=== PATIENT | female | born 1970 | race Caucasian/White ===

== ENCOUNTER → 2021-05-14 00:49 | Outpatient (CLI) | payer OTHER, BC, SELFPAY ==
[2021-05-15 16:57] LABS: SARS-CoV-2 RNA PCR Negative
== END ==
PROVIDERS: PCP Internal Medicine; Visit Provider Internal Medicine Gastroenterology
DX: Z01.812 Encounter for preprocedural laboratory examination (principal); Z20.822 Contact with and (suspected) exposure to COVID-19
CPT/HCPCS: C9803; U0003; U0005

== ENCOUNTER 2021-05-17 01:04 | Day surgery (SDC) | payer OTHER, BC, SELFPAY ==
[2021-05-10 11:57] VITALS: BMI 24.1
[2021-05-17 08:05] VITALS: BP 105/70; PULSE 86; RESP 16; TEMP 36.2; O2SAT 98; BMI 24.5
[2021-05-17] MEDS: LACTATED RINGERS 1,000 ML 150 ML IV CONT (08:08)
--- NOTE | 2021-05-17 08:08 | P.PNAN_ITS ---
Anes - Initial Pre Proc Eval Procedure: Operation Date: 05/17/21 08:30 Proposed Procedures p Esophagogastroduodenoscopy - Tim Ramsay MD Date/Time: 05/17/21 08:08 Surgeon: Tim Ramsay MD Pre Op Diagnosis: esophageal stricture Patient Data Age: 50 Gender: F Height: 1.73 m Weight: 73.3 kg Last Vital Signs Temp 97.2 F L 05/17/21 08:05 Pulse 86 05/17/21 08:05 Resp 16 05/17/21 08:05 BP 105/70 05/17/21 08:05 Pulse Ox 98 05/17/21 08:05 Allergies Allergy/AdvReac Type Severity Reaction Status Date / Time No Known Allergies Allergy Verified 05/17/21 08:04 Home Medications Medication Instructions Recorded Confirmed Type omeprazole 20 mg PO DAILY 05/17/21 05/17/21 History Patient hx anesthesia problems: none Family hx anesthesia problems: none [facility] Past Medical History Medical History (Updated 05/17/21 @ 08:04 by Darvin Hess MD) GERD (gastroesophageal reflux disease) Social History Social History Years smoked: 15 Smoking status: Current some day smoker Tobacco type: cigarettes Alcohol intake: current Substance use: never Substance use type: does not use Living arrangements: with family Spiritual care concerns: No Anes - Eval Final PreProcedure Day of Procedure 05/17/21 08:08 Patient weight: normal Heart: regular rate and rhythm Lungs: clear to auscultation Airway: Mallampati scale class II Neurological: alert and oriented Last oral intake: >/= 8 hours ASA classification: II Emergent: no Anesthetic plan: proceed Anesthesia type and monitoring: general GIVS and standard monitoring Informed Consent: The patient's anesthetic plan and its attendant risks and benefits were discussed with the patient/family/POA. Questions were solicited and answers provided to the satisfaction of the patient/family/POA.
--- NOTE | 2021-05-17 08:18 | PM.HPGS ---
History of Present Illness History of Present Illness Consent: Risks, benefits, and alternatives have been discussed and questions answered. Patient agrees to proceed with procedure. Chief complaint: esophageal stricture Narrative: Dee Bautista is a 50 year old female with gastric bypass 20 years ago, had EGD x2 last time about 10 years ago. Here with nausea and vomiting few minutes after eating solids, lately only on liquids. She was taking omeprazole but none last few weeks. Review of Systems Constitutional: Constitutional: Denies headache(s) and Denies weakness Eyes: Eyes: Denies blurry vision ENT: Reports Normal hearing present, Denies headache(s) and Denies neck pain Cardiovascular: Cardiovascular: Denies chest pain and Denies dyspnea Respiratory: Respiratory: Denies dyspnea Gastrointestinal: Gastrointestinal: Reports no additional gastrointestinal complaints Genitourinary: Genitourinary: Denies dysuria Musculoskeletal: Musculoskeletal: Denies neck pain Integumentary/Breasts: Skin/Breast: Denies dry skin Neurologic: Reports Normal hearing present, Denies headache(s) and Denies weakness Psychiatric: Psychiatric: Denies anxiety Endocrine: Endocrine: Denies change in body appearance Hematologic/Lymphatic: Hematologic/Lymphatic: Denies easy bleeding Allergic/Immunologic: Allergic/Immunologic: Denies urticaria PMFSH Past Medical History Medical History (Updated 05/17/21 @ 08:19 by Tim Ramsay MD) GERD (gastroesophageal reflux disease) Nausea and vomiting in adult Surgical History Surgical History (Updated 05/17/21 @ 08:19 by Tim Ramsay MD) Gastric bypass status for obesity Social History Social History Years smoked: 15 Smoking status: Current some day smoker Tobacco type: cigarettes Alcohol intake: current Substance use: never Substance use type: does not use Living arrangements: with family Spiritual care concerns: No Meds Home Medications and Allergies Home Medications Medication Instructions Recorded Confirmed Type omeprazole 20 mg PO DAILY 05/17/21 05/17/21 History Allergies Allergy/AdvReac Type Severity Reaction Status Date / Time No Known Allergies Allergy Verified 05/17/21 08:04 Vital Signs Vital Signs - 24 hr 05/17/21 08:05 Temperature 97.2 F L Pulse Rate 86 Respiratory Rate 16 Blood Pressure 105/70 Pulse Oximetry 98 Exam Const: General: comfortable and no acute distress HENMT: General nose exam: Normal nares present Eyes: General: appearance normal, both eyes and all related structures Neck: Neck: no JVD Resp: Auscultation: clear to auscultation bilaterally Cardio: Rate: regular rate Rhythm: regular rhythm GI: Inspection: non-distended GI Palp: Yes Soft to palpation Skin: General skin exam: normal color Neuro: General: gait normal Speech: normal speech Extrem: General: normal to inspection Psych: Mental Status: mental status grossly normal Assessment and Plan Assessment and plan (1) Nausea and vomiting in adult: Code(s): R11.2 - Nausea with vomiting, unspecified Status: Acute Assessment and Plan: egd to assess if esophagitis, stricture, etc (2) Gastric bypass status for obesity: Code(s): Z98.84 - Bariatric surgery status Status: Acute Assessment and Plan: symptoms could be related to previous surgery
[2021-05-17] MEDS: BENZOCAINE (*SP) 60 ML SPRAY CAN (HURRICAINE) 1 SPRAY MUCOUS MEM (08:22)
[2021-05-17 08:39] VITALS: BP 115/76; PULSE 91; RESP 16; O2SAT 100
[2021-05-17 08:49] VITALS: BP 116/69; PULSE 89; RESP 16; O2SAT 100
[2021-05-17 08:57] VITALS: BP 113/75; PULSE 87; RESP 16; O2SAT 100
== END 2021-05-17 09:04 | disposition home or self-care (01) ==
PROVIDERS: PCP Internal Medicine; Visit Provider Internal Medicine Gastroenterology
PROC: 0DJ08ZZ Inspection of Upper Intestinal Tract, Via Natural or Artificial Opening Endoscopic (ICD-10-PCS; CPT 43235; principal; 2021-05-17 08:30)
DX: R11.2 Nausea with vomiting, unspecified (principal); K21.00 Gastro-esophageal reflux disease with esophagitis, without bleeding; Z98.84 Bariatric surgery status; K31.2 Hourglass stricture and stenosis of stomach; K29.50 Unspecified chronic gastritis without bleeding; F17.210 Nicotine dependence, cigarettes, uncomplicated; K25.9 Gastric ulcer, unspecified as acute or chronic, without hemorrhage or perforation; Z98.0 Intestinal bypass and anastomosis status
CPT/HCPCS: 43239; 43245; 88305; C1726; C9803; J2704; J7120; U0003; U0005

== ENCOUNTER 2022-10-31 10:50 | Day surgery (SDC) | payer OTHER, BC, SELFPAY ==
[2022-10-28 11:53] VITALS: BMI 28.8
[2022-10-28 12:22] VITALS: BMI 27.3
[2022-10-31 11:10] VITALS: BP 141/85; PULSE 88; RESP 14; TEMP 36.6; O2SAT 99
[2022-10-31 11:20] VITALS: BMI 28.3
[2022-10-31] MEDS: LACTATED RINGERS 1,000 ML 150 ML IV CONT (11:30)
--- NOTE | 2022-10-31 11:40 | WPDHPUPDATE1 ---
History and Physical Update Update Date/Time: 10/31/22 11:40 History and Physical has been reviewed, including an updated exam of the patient. There are NO changes in the patient's condition. Risks, benefits, and alternatives have been discussed and questions answered. Patient agrees to proceed with procedure.
[2022-10-31 12:00] VITALS: BP 137/92; PULSE 82; RESP 14; O2SAT 99
[2022-10-31 12:10] VITALS: BP 133/86; PULSE 74; RESP 16; O2SAT 99
--- NOTE | 2022-10-31 12:10 | WPDANESPN ---
Anes - Prog Note Post-Op Date/Time: 10/31/22 12:10 Cardiovascular status: normal Respiratory status: normal Airway patency: baseline Mental status: baseline Post-Op hydration status: normal Vital Signs: Last Vital Signs Temp 36.6 C 10/31/22 11:10 Pulse 82 10/31/22 12:00 Resp 14 10/31/22 12:00 BP 137/92 H 10/31/22 12:00 Pulse Ox 99 10/31/22 12:00 O2 Del Method Room Air 10/31/22 12:00 Pain Score (VAS): 0 I/O: Intake & Output 10/30/22 10/31/22 10/31/22 23:59 07:59 15:59 Intake Total 200 Balance 200 Patient Feedback: Patient satisfied with anesthetic care.
[2022-10-31 12:20] VITALS: BP 128/85; PULSE 83; RESP 16; O2SAT 99
== END 2022-10-31 12:38 | disposition home or self-care (01) ==
PROVIDERS: PCP Internal Medicine; Visit Provider Internal Medicine Gastroenterology
PROC: 0DJ08ZZ Inspection of Upper Intestinal Tract, Via Natural or Artificial Opening Endoscopic (ICD-10-PCS; CPT 43235; principal; 2022-10-31 12:30)
DX: K31.2 Hourglass stricture and stenosis of stomach (principal)
CPT/HCPCS: 43245; 45331

== ENCOUNTER 2023-01-23 08:35 | Day surgery (SDC) | payer OTHER, BC, SELFPAY ==
[2023-01-10 10:39] VITALS: BMI 26.4
[2023-01-23] MEDS: LACTATED RINGERS 1,000 ML 150 ML IV CONT (09:39)
[2023-01-23 09:40] VITALS: BP 150/96; PULSE 69; RESP 20; TEMP 37.2; O2SAT 99
--- NOTE | 2023-01-23 09:40 | P.PNAN_ITS ---
Anes - Initial Pre Proc Eval Procedure: Operation Date: 01/23/23 10:30 Proposed Procedures p Screening Colonoscopy - Tim Ramsay MD Date/Time: 01/23/23 09:40 Surgeon: Tim Ramsay MD Pre Op Diagnosis: History of Colon Polyps, Family History Colon CA Patient Data Age: 52 Gender: F Height: 1.73 m Weight: 85.8 kg Last Vital Signs Temp 37.2 C 01/23/23 09:40 Pulse 69 01/23/23 09:40 Resp 20 01/23/23 09:40 BP 150/96 H 01/23/23 09:40 Pulse Ox 99 01/23/23 09:40 O2 Del Method Room Air 01/23/23 09:40 Allergies Allergy/AdvReac Type Severity Reaction Status Date / Time No Known Allergies Allergy Verified 01/10/23 10:36 Home Medications Medication Instructions Recorded Confirmed Type omeprazole 40 mg capsule,delayed See Rx Instructions .Route 07/04/22 01/23/23 Rx release .COMPLEX #60 caps famotidine 20 mg tablet (Pepcid) 20 mg PO DAILY 10/28/22 01/23/23 History folic acid 1 mg tablet 1 mg PO DAILY 10/28/22 01/23/23 History Patient hx anesthesia problems: none Family hx anesthesia problems: none Results Review: All pre-operative results and documents have been reviewed as part of the pre- operative evaluation. [facility] Past Medical History Medical History Anastomotic stenosis of gastrojejunostomy Dysphagia Gastric ulcer GERD (gastroesophageal reflux disease) GERD with esophagitis Hx of colonic polyps Hx of deep venous thrombosis Nausea and vomiting in adult Surgical History Surgical History Gastric bypass status for obesity H/O total hysterectomy Hx of cholecystectomy Social History Social History Years smoked: 15 Smoking status: Former smoker Tobacco type: cigarettes Alcohol intake: current Substance use: never Substance use type: does not use Living arrangements: with family Spiritual care concerns: No Anes - Eval Final PreProcedure Day of Procedure 01/23/23 09:40 Patient weight: overweight Heart: regular rate and rhythm Lungs: clear to auscultation Airway: Mallampati scale class II Neurological: alert and oriented Last oral intake: >/= 8 hours ASA classification: II Emergent: no Anesthetic plan: proceed Anesthesia type and monitoring: general GIVS and standard monitoring Results Review: All pre-operative results and documents have been reviewed as part of the pre- operative evaluation. Informed Consent: The patient's anesthetic plan and its attendant risks and benefits were discussed with the patient/family/POA. Questions were solicited and answers p rovided to the satisfaction of the patient/family/POA.
--- NOTE | 2023-01-23 09:54 | PM.HPGS ---
History of Present Illness History of Present Illness Consent: Risks, benefits, and alternatives have been discussed and questions answered. Patient agrees to proceed with procedure. Chief complaint: History of Colon Polyps, Family History Colon CA Narrative: Dee Bautista is a 52 year old female with history of polyps getting colonoscopies every 3 years, sister had colon cancer Review of Systems Constitutional: Constitutional: Denies headache(s) and Denies weakness Eyes: Eyes: Denies blurry vision ENT: Reports Normal hearing present, Denies headache(s) and Denies neck pain Cardiovascular: Cardiovascular: Denies chest pain and Denies dyspnea Respiratory: Respiratory: Denies dyspnea Gastrointestinal: Gastrointestinal: Reports no additional gastrointestinal complaints Genitourinary: Genitourinary: Denies dysuria Musculoskeletal: Musculoskeletal: Denies neck pain Integumentary/Breasts: Skin/Breast: Denies dry skin Neurologic: Reports Normal hearing present, Denies headache(s) and Denies weakness Psychiatric: Psychiatric: Denies anxiety Endocrine: Endocrine: Denies change in body appearance Hematologic/Lymphatic: Hematologic/Lymphatic: Denies easy bleeding Allergic/Immunologic: Allergic/Immunologic: Denies urticaria PMFSH Past Medical History Medical History Anastomotic stenosis of gastrojejunostomy Dysphagia Gastric ulcer GERD (gastroesophageal reflux disease) GERD with esophagitis Hx of colonic polyps Hx of deep venous thrombosis Nausea and vomiting in adult Surgical History Surgical History Gastric bypass status for obesity H/O total hysterectomy Hx of cholecystectomy Social History Social History Years smoked: 15 Smoking status: Former smoker Tobacco type: cigarettes Alcohol intake: current Substance use: never Substance use type: does not use Living arrangements: with family Spiritual care concerns: No Meds Home Medications and Allergies Home Medications Medication Instructions Recorded Confirmed Type omeprazole 40 mg capsule,delayed See Rx Instructions .Route 07/04/22 01/23/23 Rx release .COMPLEX #60 caps famotidine 20 mg tablet (Pepcid) 20 mg PO DAILY 10/28/22 01/23/23 History folic acid 1 mg tablet 1 mg PO DAILY 10/28/22 01/23/23 History Allergies Allergy/AdvReac Type Severity Reaction Status Date / Time No Known Allergies Allergy Verified 01/10/23 10:36 Vital Signs Vital Signs - 24 hr 01/23/23 09:40 Temperature 98.9 F Pulse Rate 69 Respiratory Rate 20 Blood Pressure 150/96 H Pulse Oximetry 99 Oxygen Delivery Room Air Exam Const: General: comfortable and no acute distress HENMT: Face/Nose/Sinus: Normal nares present Eyes: General: appearance normal, both eyes and all related structures Neck: Neck: no JVD Resp: Auscultation: clear to auscultation bilaterally Cardio: Rate: regular rate Rhythm: regular rhythm GI: Inspection: non-distended GI Palp: Yes Soft to palpation Skin: General skin exam: normal color Neuro: General: gait normal Speech: normal speech Extrem: General: normal to inspection Psych: Mental Status: mental status grossly normal Assessment and Plan Assessment and plan (1) Hx of colonic polyps: Code(s): Z86.010 - Personal history of colonic polyps Status: Acute Assessment and Plan: colonoscopy
[2023-01-23 10:20] VITALS: BP 124/81; PULSE 80; RESP 16; O2SAT 100
--- NOTE | 2023-01-23 10:20 | WPDANESPN ---
Anes - Prog Note Post-Op Date/Time: 01/23/23 10:20 Cardiovascular status: normal Respiratory status: normal Airway patency: baseline Mental status: baseline Post-Op hydration status: normal Vital Signs: Last Vital Signs Temp 37.2 C 01/23/23 09:40 Pulse 69 01/23/23 09:40 Resp 20 01/23/23 09:40 BP 150/96 H 01/23/23 09:40 Pulse Ox 99 01/23/23 09:40 O2 Del Method Room Air 01/23/23 09:40 Pain Score (VAS): 0 I/O: Intake & Output 01/22/23 01/23/23 01/23/23 23:59 07:59 15:59 Intake Total 400 Balance 400 Patient Feedback: Patient satisfied with anesthetic care.
[2023-01-23 10:30] VITALS: BP 129/89; PULSE 80; RESP 16; O2SAT 99
--- NOTE | 2023-01-23 10:37 | SUR.PHASEII ---
PT AWAKE AND ALERT. TALKATIVE. EATING AND DRINKING. SPOUSE AT SIDE. PT DENIES PAIN.
[2023-01-23 10:40] VITALS: BP 135/90; PULSE 64; RESP 16; O2SAT 100
== END 2023-01-23 10:56 | disposition home or self-care (01) ==
PROVIDERS: PCP Internal Medicine; Visit Provider Internal Medicine Gastroenterology
PROC: 0DJD8ZZ Inspection of Lower Intestinal Tract, Via Natural or Artificial Opening Endoscopic (ICD-10-PCS; CPT 45378; principal; 2023-01-23 10:30)
DX: Z86.010 Personal history of colon polyps (principal)
CPT/HCPCS: 45385

== ENCOUNTER 2023-01-23 09:00 | Outpatient (NON) | payer OTHER, BC, SELFPAY | END 2023-01-23 09:01 | disposition home or self-care (01) | LOC: ANHLAB 01-24 10:25 | PROVIDERS: PCP Internal Medicine; Visit Provider Internal Medicine Gastroenterology | DX: Z86.010 Personal history of colon polyps (principal) | CPT/HCPCS: 88305 ==